=== PATIENT | female | born 1945 | race African-American/Black ===

== ENCOUNTER → 2017-02-01 | Day surgery (SDC) | payer OTHER ==
[~2017-02-01] MED LIST: ALBUTEROL2.5 MG/3 M; AMLODIPINE BESY10 MG PO; ASPIRIN81 MG PO; ATARAX PO; ATENOLOL PO; BAYER ASPIRIN325 M1 PO; BENZONATATE PO; CELEXA20 MG PO; CLARITIN10 M2 PO; CLEMASTINE FU2.68 MG PO; FLONASE; GLUCOPHAGE500 MG PO; HUMALOG MI100 UNIT/3 SUBQ; HYDRALAZINE HC100 MG PO; HYDRALAZINE HCL50 MG PO; HYDROCHLOROTHIA25 MG PO; HYDROCORTISONE; JANUVIA PO; LASIX20 MG PO; LEVEMIR100 UNITS/ SUBQ; LIPITOR20 MG PO; LISINOPRIL10 MG PO; LISINOPRIL20 MG PO; LOVASTATIN20 MG PO; NEURONTIN100 MG PO; NORVASC PO; PIOGLITAZONE30 MG PO; PROAIR HFA8.5 GM IH; STIOLTO RESPIMAT4 GM; ULTRAM; VITAMIN D31000 UNIT PO; VOLTAREN75 MG PO; ZITHROMAX PO
--- NOTE | ~2017-02-01 | OR ---
Unit #: [id number] #: [id number] Patient: REX VIDAL [id number] [address] [place], [place] [address] [id number] MR#: [id number] NAME: REX VIDAL ROOM: Date of Procedure: 02/01/2017 Admission Date: 02/01/2017 Surgeon: Lenny Schumacher M.D. : 1945 Attending Physician: Lenny Schumacher M.D. Referring Physician: Lenny Schumacher M.D. Primary Care Physician: Chaparrita Gardner M.D. OPERATIVE REPORT PROCEDURES PERFORMED Esophagogastroduodenoscopy with biopsy and colonoscopy to cecum. INDICATIONS FOR PROCEDURE A 71-year-old with dysphagia, average risk for colorectal cancer. MEDICATIONS Monitored anesthesia. POSTOPERATIVE FINDINGS 1. Esophageal ring dilated to 20 mm with a balloon. 2. Chronic appearing gastritis. Biopsies taken. 3. Normal duodenum and distal duodenum. 4. Colonoscopy completed to cecum. Prep was adequate. 5. No polyps, mass, or colitis. 6. Diverticulosis noted. PLAN High fiber diet. Repeat colonoscopy in 10 years. Continue PPI therapy. DESCRIPTION OF PROCEDURE The patient was explained of the procedure risks and benefits along with risks and benefits of anesthesia. She was brought to the endoscopy room. Propofol anesthesia was given. Bite block was placed. The scope was passed down the mouth into esophagus, stomach, duodenum, and distal duodenum. Findings as described. Biopsies were taken. Scope was then pulled back into esophagus. Dilation was carried out with a balloon. Gently, I pulled the scope out of the patient's mouth. She tolerated it well. At this time, she was turned around and repositioned for colonoscopy. Rectal exam was done, which was normal. Colonoscope was lubricated, passed up the rectum, advanced under direct vision all the way to the cecum. Cecum was identified by ileocecal valve and appendiceal orifice. I then started to pull the scope out carefully looking. No polyps, masses, or colitis were seen. Mucosa was normal and healthy. I retroflexed in the rectum, small hemorrhoids were seen. The scope was gently pulled out. She tolerated it well. Dictated by... Lenny Schumacher M.D. Unit #: [id number] #: [id number] Patient: REX VIDAL CYRIL/linus TD: 02/01/2017 16:17 JOB #: [id number] CC: Chaparrita Gardner M.D. OPERATIVE REPORT Page 1 of 1 X Lenny Schumacher MD PROCEDURE OPERATIVE NOTE
== END | disposition home or self-care (01) ==
LOC: COPS 07:34
DX: Z12.11 Encounter for screening for malignant neoplasm of colon (principal); K22.2 Esophageal obstruction; K29.50 Unspecified chronic gastritis without bleeding; K57.30 Diverticulosis of large intestine without perforation or abscess without bleeding; K64.9 Unspecified hemorrhoids; E11.9 Type 2 diabetes mellitus without complications; E66.01 Morbid (severe) obesity due to excess calories; I50.9 Heart failure, unspecified; J44.9 Chronic obstructive pulmonary disease, unspecified; K21.9 Gastro-esophageal reflux disease without esophagitis; M19.90 Unspecified osteoarthritis, unspecified site; Z86.73 Personal history of transient ischemic attack (TIA), and cerebral infarction without residual deficits; Z91.041 Radiographic dye allergy status; Z79.84 Long term (current) use of oral hypoglycemic drugs; Z79.82 Long term (current) use of aspirin; Z79.899 Other long term (current) drug therapy; Z98.51 Tubal ligation status; Z98.41 Cataract extraction status, right eye; Z98.42 Cataract extraction status, left eye; Z90.49 Acquired absence of other specified parts of digestive tract; Z98.890 Other specified postprocedural states
CPT/HCPCS: 82947; 88305; 88312